=== PATIENT | male | born 1995 | race Caucasian/White ===

== ENCOUNTER 2016-04-30 16:23 | Emergency (ER) | payer BC ==
[~2016-04-30] VITALS: Ht 170.2 cm; Wt 60.0 kg
[2016-04-30 16:46] VITALS: TEMP 36.8; Ht 170.2 cm; Wt 60.0 kg
--- NOTE | 2016-04-30 19:17 | DIAGNOSTIC IMAGING REPORT ---
HEAD CT NONCONTRAST CT DOSE: 537.48 mGy.cm HISTORY: Trauma. Change in mental status. head gretta/trauma eval for bleed TECHNIQUE: Multiaxial CT images of the head were performed without the use of intravenous contrast. Comparison: None. Findings: The paranasal sinuses and mastoid air cells are clear. The calvarium and skull base are intact. The ventricles and sulci are within normal limits. There is no mass, hematoma, midline shift, or acute infarct. Impression: No acute intracranial abnormality. Electronically signed by: Charles Miguel M.D. 04/30/2016 7:16 PM Dictated Date/Time: 04/30/2016 7:14 PM
[2016-04-30 20:13] VITALS: BP 126/73; PULSE 63; O2SAT 100
--- NOTE | 2016-05-01 | EMERGENCY ROOM VISIT NOTE ---
History Report prepared by N[place]renan: Sea Reeder Under the Supervision of: Dr. Ryan Cavazos M.D. First contact with patient: 18:45 Chief Complaint: HEAD INJURY (MINOR) Stated Complaint: CONCUSSION History of Present Illness The patient is a 20 year old male who presents to the Emergency Room with complaints of improving frontal head pain since a fall that occurred at approximately 0300 two nights ago. The patient also reports trouble focusing and nausea. He denies any vomiting, weakness, or numbness. The patient fell walking up a set of stairs and hit his forehead on one of the steps. The patient cannot recall the car ride in which his friend was driving after the fall. The patient was drinking alcohol the night of the fall. The patient did not sustain any other injuries from the fall. The patient denies any medical problems. His tetanus is up to date. Source of History: patient Onset: 0300 two nights ago Position: head Quality: other (s/p fall) Timing: other (improving) Associated Symptoms: + LOC, + nausea, No numbness, No vomiting, No weakness Review of Systems See HPI for pertinent positives & negatives. A total of 10 systems reviewed and were otherwise negative. Past Medical & Surgical Medical Problems: (1) Anxiety and depression Family History Heart disease Social History Smoking Status: Current Some Day Smoker Alcohol Use: occasionally Occupation Status: [employer] student Physical Exam Vital Signs Date Time Temp Pulse Resp B/P Pulse Ox O2 Delivery O2 Flow Rate FiO2 04/30/16 20:13 63 18 126/73 100 04/30/16 16:46 36.8 92 20 141/86 98 Room Air 04/30/16 16:46 20 Physical Exam Constitutional: Vital signs reviewed. Eyes: Pupils are equal round reactive to light. Conjunctiva are noninjected. ENT: Pharynx is clear without erythema or exudate. Mucous membranes are moist. Neck supple without meningeal signs. Respiratory: Clear to auscultation bilaterally. Breath sounds are equal bilaterally. Cardiovascular: Regular rate and rhythm. No rubs or gallops. GI: Soft, nondistended and nontender. Bowel sounds are present. Musculoskeletal: No peripheral edema. Integumentary: No cyanosis. Abrasion to the forehead, no bony depression. Neurological: The patient is awake and alert. Cranial nerves II-XII are intact. Motor is 5 out of 5 all extremities. Sensation is intact to light touch all extremities. Normal speech. No pronator drift. Psychiatric: Normal affect. Medical Decision & Procedures ER Provider Diagnostic Interpretation: CT results as stated below per my review and radiologist interpretation. HEAD CT NONCONTRAST CT DOSE: 537.48 mGy.cm HISTORY: Trauma. Change in mental status. head gretta/trauma eval for bleed TECHNIQUE: Multiaxial CT images of the head were performed without the use of intravenous contrast. Comparison: None. Findings: The paranasal sinuses and mastoid air cells are clear. The calvarium and skull base are intact. The ventricles and sulci are within normal limits. There is no mass, hematoma, midline shift, or acute infarct. Impression: No acute intracranial abnormality. Electronically signed by: Charles Miguel M.D. 04/30/2016 7:16 PM Dictated Date/Time: 04/30/2016 7:14 PM ED Course 1847: The patient was evaluated in room D5. A complete history and physical exam was performed. 2005: I discussed tonight's findings with him and gave him head injury precautions. He verbalized agreement of the treatment plan. He was discharged home. Medical Decision This is a 20-year-old male who presents with a recent head injury. Differential diagnosis includes contusion, skull fracture, intracranial hemorrhage, postconcussive syndrome. I did perform a limited focused review of portions of the patient's old chart on the electronic medical record. The patient has had no prior visits. I did evaluate the patient as noted above. I did order a CT of the head. I did review the images myself as well as the radiology report as described above. There is no evidence of acute intracranial hemorrhage. I did discuss the test results with the patient. I did recommend he follow with the [facility] orthopedics concussion clinic. He was given concussion precautions and given a note for school. He was discharged in good condition. Impression Primary Impression: Closed head injury with concussion Scribe Attestation The scribe's documentation has been prepared under my direct and personally reviewed by me in its entirety. I confirm that the note above accurately reflects all work, treatment, procedures, and medical decision making performed by me. Departure Information Dispostion Home / Self-Care Forms HOME CARE DOCUMENTATION FORM, IMPORTANT VISIT INFORMATION, School Instructions Patient Instructions Concussion Mi, My [facility] Additional Instructions You have been examined and treated today on an emergency basis only. This is not a substitute for, or an effort to provide, complete comprehensive medical care. It is impossible to recognize and treat all injuries or illnesses in a single emergency department visit. It is therefore important that you follow up closely with [facility] or [facility] orthopedics concussion clinic. Call as soon as possible for an appointment. Return for worsening symptoms or if you develop fever, vomiting, numbness or weakness on one side of your body or any other concerning symptoms. Problem Qualifiers Primary Impression: Closed head injury with concussion Encounter type: initial encounter
== END 2016-04-30 20:14 | disposition home or self-care (01) ==
LOC: C.EDB 16:25 → C.EDD 20:14
DX: S06.0X0A Concussion without loss of consciousness, initial encounter (principal); W10.9XXA Fall (on) (from) unspecified stairs and steps, initial encounter; F17.200 Nicotine dependence, unspecified, uncomplicated; F41.9 Anxiety disorder, unspecified; F32.9 Major depressive disorder, single episode, unspecified